=== PATIENT | male | born 1985 | race Caucasian/White ===

== ENCOUNTER → 2022-10-11 | Outpatient (CLI) | payer OTHER ==
--- NOTE | 2022-10-12 09:42 | MR ---
EXAMINATION TYPE: MR shoulder RT wo con DATE OF EXAM: 10/11/2022 COMPARISON: None HISTORY: Right shoulder constant pain for 8 years. TECHNIQUE: Multiplanar, multisequence imaging of the right shoulder is performed without contrast. FINDINGS: Rotator Cuff: Distal supraspinatus and infraspinatus tendons are intact. Rotator cuff muscle bulk is preserved. Subscapularis tendon intact. Acromioclavicular Joint: No significant spurring or narrowing. Distal acromion morphology unremarkabl e. Glenohumeral Joint: No significant spurring or joint effusion. Labrum: The labrum appears grossly intact given limitation of non-arthrogram study. Biceps Tendon: The long head of biceps is in normal location within bicipital groove. Bone marrow signal: No focal abnormal marrow signal is appreciated. Other: No additional significant abnormality is appreciated. IMPRESSION: No rotator cuff or labral tear is seen.
== END | disposition home or self-care (01) ==
LOC: RADMRIMAIN 19:14
DX: M25.511 Pain in right shoulder (principal)